=== PATIENT | male | born 1975 | race Caucasian/White ===

== ENCOUNTER 2017-01-20 15:13 | Emergency (ER) | payer OTHER ==
[2017-01-20 15:17] VITALS: BP 141/85; PULSE 69; RESP 20; TEMP 97.5
[2017-01-20] MEDS ORDERED: DIPH,PERTUS(ACELL)TETVAC-LF 0.5 ML VIAL IM ONE (15:35)
--- NOTE | 2017-01-20 15:56 | ED ---
Wound/Laceration HPI - General Chief Complaint: Wound/Laceration Stated Complaint: finger lac Time Seen by Provider: 01/20/17 15:25 Source: patient, RN notes reviewed Mode of arrival: ambulatory Limitations: no limitations - History of Present Illness Initial Comments: This a 41-year-old male presents emergency Department chief complaint laceration to his left hand 4th digit. Patient states that he was fixing a waterline in the dirt and states that the hose clamp caught his finger. He is unsure when his last tetanus was. Patient has full range of motion of the digit. Patient is normal drug ALLERGIES. Patient states is no other injury. He did state laceration extends from the proximal portion of this finger to the distal - Related Data Previous Rx's Medication Instructions Recorded Acetaminophen-Codeine 300-30mg 1 tab PO Q4H PRN #20 tablet 01/20/17 [Tylenol #3] Cephalexin [Keflex] 500 mg PO Q6HR #28 cap 01/20/17 Allergies Allergy/AdvReac Type Severity Reaction Status Date / Time No Known Allergies Allergy Verified 01/20/17 15:17 Review of Systems ROS Statement: Those systems with pertinent positive or pertinent negative responses have been documented in the HPI. ROS Other: All systems not noted in ROS Statement are negative. Past Medical History Past Medical History: No Reported History History of Any Multi-Drug Resistant Organisms: None Reported Past Surgical History: Appendectomy, Orthopedic Surgery Additional Past Surgical History / Comment(s): KNEE X4 Past Psychological History: No Psychological Hx Reported Smoking Status: Current every day smoker Past Alcohol Use History: Rare Past Drug Use History: None Reported General Exam Limitations: no limitations General appearance: alert, in no apparent distress Respiratory exam: Present: normal lung sounds bilaterally. Absent: respiratory distress, wheezes, rales, rhonchi, stridor Cardiovascular Exam: Present: regular rate, normal rhythm, normal heart sounds. Absent: systolic murmur, diastolic murmur, rubs, gallop, clicks Extremities exam: Present: other (Left hand 4th digit there is a laceration extends from proximal to distal portion on the volar surface is approximately 4 cm. Patient's full strength and full range of motion of the digits Refill less than 2 seconds) Course Vital Signs 01/20/17 15:15 Temperature 97.5 F L Pulse Rate 69 Respiratory 20 Rate Blood Pressure 141/85 O2 Sat by Pulse 99 Oximetry Procedures - Laceration Laceration #1 Consent Obtained: verbal consent Site: hand (Left hand 4th digit) Size (cm): 4 Description: linear Depth: simple, single layer Anesthetic Used: lidocaine 1%, without epi Anesthesia Technique: local infiltration Amount (mls): 4 Pre-repair: wound explored, irrigated extensively, deep structures intact Type of Sutures: nylon Size of Sutures: 4-0 Number of Sutures: 9 Technique: simple, interrupted Patient Tolerated Procedure: well, no complications Medical Decision Making - Medical Decision Making 41-year-old male presented for left hand laceration. This was closed using sutures. Patient was given instructions for wound care and return parameters. Patient placed on antibiotics as it was a contaminated wound. Patient will have recheck in 2 days and return in 10 days for suture removal. Disposition Clinical Impression: Finger laceration Disposition: HOME SELF-CARE Condition: Stable Instructions: Finger Laceration (ED), Care For Your Stitches (ED) Additional Instructions: Return in 10 days for suture removal. Wash the wound twice to soap and water.Please return to the Emergency Department if symptoms worsen or any other concerns. Prescriptions: Acetaminophen-Codeine 300-30mg [Tylenol #3] 1 tab PO Q4H PRN #20 tablet PRN Reason: pain Cephalexin [Keflex] 500 mg PO Q6HR #28 cap Referrals: Mary Jane Dahl MD [Primary Care Provider] - 1-2 days Time of Disposition: 15:56
== END 2017-01-20 16:10 | disposition home or self-care (01) ==
LOC: EC 15:13
DX: S61.215A Laceration without foreign body of left ring finger without damage to nail, initial encounter (principal); F17.200 Nicotine dependence, unspecified, uncomplicated; Z23 Encounter for immunization; Y93.89 Activity, other specified; W23.1XXA Caught, crushed, jammed, or pinched between stationary objects, initial encounter
CPT/HCPCS: 12002; 90471; 90715; 99282

== ENCOUNTER 2017-01-27 12:24 | Emergency (ER) | payer OTHER ==
[2017-01-27 12:29] VITALS: BP 140/88; PULSE 78; RESP 18; TEMP 97.7
--- NOTE | 2017-01-27 13:15 | ED ---
Recheck HPI - General Chief Complaint: Recheck/Abnormal Lab/Rx Stated Complaint: Laceration Recheck Time Seen by Provider: 01/27/17 12:33 Source: patient Mode of arrival: ambulatory Limitations: no limitations - History of Present Illness Initial Comments: Patient is a is a 41-year-old male presenting to the emergency department with chief complaint of pain to his left fourth digit on his right hand. Patient states he cut his hand one week ago and was in the emergency department for laceration repair. Patient states he's been experiencing a lot of nerve pain and follow up with his primary care physician twice and the hand surgeon on Saturday for an exposed nerve. Patient states that the hand surgeon suggested to let the nerve dry out. Patient states that the pain is excruciating and is requesting to have one suture removed is irritating the exposed nerve. Patient rates pain 10 out of 10, exacerbated with movement and touch, minimally relieved with Stella 7.5. Patient states he took his last Stella this morning at 4 AM. Patient denies chills, fevers, nausea, vomiting, shortness of breath, chest pain. Patient reports numbness to the medial side and end of the fourth finger on his left hand. Patient states that he removed a suture this morning to the distal end of his finger no relief. MD Complaint: suture/staple removal - Related Data Previous Rx's Medication Instructions Recorded Acetaminophen-Codeine 300-30mg 1 tab PO Q4H PRN #20 tablet 01/20/17 [Tylenol #3] Cephalexin [Keflex] 500 mg PO Q6HR #28 cap 01/20/17 Allergies Allergy/AdvReac Type Severity Reaction Status Date / Time No Known Allergies Allergy Verified 01/27/17 12:29 Review of Systems ROS Statement: Those systems with pertinent positive or pertinent negative responses have been documented in the HPI. ROS Other: All systems not noted in ROS Statement are negative. Past Medical History Past Medical History: No Reported History History of Any Multi-Drug Resistant Organisms: None Reported Past Surgical History: Appendectomy, Orthopedic Surgery Additional Past Surgical History / Comment(s): KNEE X4 Past Psychological History: No Psychological Hx Reported Smoking Status: Current every day smoker Past Alcohol Use History: Rare Past Drug Use History: None Reported General Exam Limitations: no limitations General appearance: alert, anxious Respiratory exam: Present: normal lung sounds bilaterally. Absent: respiratory distress, wheezes, rhonchi Cardiovascular Exam: Present: regular rate, normal rhythm, normal heart sounds Left Hand Wrist exam: Present: full ROM, tenderness, laceration (Laceration to palmar aspect of left fourth digit, no evidence of drainage or cellulitis. 8 sutures intact.) Neuro motor exam: Present: wrist extension intact, thumb opposition intact, thumb IP flexion intact, thumb adduction intact, fingers 2-5 abduction intact Neurosensory exam: Present: radial nerve intact, ulnar nerve intact, median nerve intact, other (Numbness to medial aspect of left fourth digit and in the fingertip) Vascular: Present: normal capillary refill, radial pulse, ulnar pulse. Absent: vascular compromise Neurological exam: Present: alert, oriented X3, other (No focal deficits noted) Psychiatric exam: Present: normal affect, normal mood, anxious Skin exam: Present: warm, dry Course Vital Signs 01/27/17 12:26 Temperature 97.7 F Pulse Rate 78 Respiratory 18 Rate Blood Pressure 140/88 O2 Sat by Pulse 99 Oximetry Procedures - Nerve Block Consent Obtained: verbal consent Time Out Performed: No Local Anesthetic Used: Lidocaine 1% Amount of anesthesia used: 2 (Digital nerve block to webspaces between the fourth digit on left hand.) Side: left, right Nerve Blocks: digital Procedure Successful: Yes Complications: none Patient Tolerated Procedure: well, no complications Additional Comments: One suture removed successfully. Medical Decision Making - Medical Decision Making Patient is a 41-year-old male presenting with pain to left fourth digit and complaint of nerve exposure through this incision. Patient requesting numbing prior to suture removal. Digital block performed successfully. One suture removed. Patient tolerated well. Patient suggested to continue Tylenol and Motrin for pain and follow-up with primary care physician. Patient unfortunately left AMA. Disposition Clinical Impression: Encounter for removal of sutures Disposition: Left Against Medical Advice Condition: Undetermined Referrals: Mary Jane Dahl MD [Primary Care Provider] - 1-2 days Time of Disposition: 13:15
== END 2017-01-27 13:00 | disposition left against medical advice (07) ==
LOC: EC 12:24
DX: Z48.02 Encounter for removal of sutures (principal); F17.200 Nicotine dependence, unspecified, uncomplicated
CPT/HCPCS: 64450; 99282

== ENCOUNTER 2017-08-01 22:58 | Emergency (ER) | payer OTHER ==
[2017-08-01] MEDS ORDERED: HYDROmorphone 2 MG/ML 1 ML SYRINGE IVP STA ×2 (23:16→23:53)
[2017-08-01] MEDS ORDERED: SODIUM CHLORIDE 0.9% 500 ML IV STA (23:16)
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
[2017-08-01] MEDS ORDERED: SODIUM CHLORIDE 0.9% 100 ML IV STA (23:24)
[2017-08-01 23:45] VITALS: RESP 16
[2017-08-02 00:02] VITALS: BP 129/70; PULSE 87; TEMP 98
== END 2017-08-02 00:05 | disposition home or self-care (01) ==
LOC: EC 22:58
DX: T23.212A Burn of second degree of left thumb (nail), initial encounter (principal); T21.25XA Burn of second degree of buttock, initial encounter; T24.202A Burn of second degree of unspecified site of left lower limb, except ankle and foot, initial encounter; T31.0 Burns involving less than 10% of body surface; F17.200 Nicotine dependence, unspecified, uncomplicated; X17.XXXA Contact with hot engines, machinery and tools, initial encounter; Y92.89 Other specified places as the place of occurrence of the external cause
CPT/HCPCS: 99283; 96374; 96376; 96361; J1170

== ENCOUNTER 2020-10-08 06:42 | Emergency (ER) | payer OTHER ==
[2020-10-08 06:49] VITALS: TEMP 99
[2020-10-08] MEDS ORDERED: SODIUM CHLORIDE 0.9% 1,000 ML IV STA (07:04)
[2020-10-08] MEDS ORDERED: ONDANSETRON 4 MG/2 ML VIAL IVP STA (07:04)
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
[2020-10-08 07:56] LABS: Basophils % (A) 0 %; Eosinophils # (A) 0.1 k/uL (0-0.7); Eosinophils % (A) 1 %; HCT 46.3 % (39.0-53.0); HGB 16.1 gm/dL (13.0-17.5); Lymphocytes # (A) 1.1 k/uL (1.0-4.8); Lymphocytes % (A) 11 %; MCH 32.7 pg (25.0-35.0); MCHC 34.9 g/dL (31.0-37.0); MCV 93.9 fL (80.0-100.0); Mean Platelet Volume 7.9; Monocytes # (A) 0.7 k/uL (0-1.0); Monocytes % (A) 7 %; Neutrophils # (A) 8.1 k/uL (1.3-7.7); Neutrophils % (A) 81 %; Platelet Count 294 k/uL (150-450); RBC 4.93 m/uL (4.30-5.90); RDW 11.9 % (11.5-15.5)
[2020-10-08 07:59] LABS: ALT 13 U/L (4-49); AST 17 U/L (17-59); African American GFR (CKD) >90 (>60 ml/min/1.73 sqM); Albumin 4.8 g/dL (3.5-5.0); Alkaline Phosphatase 96 U/L (38-126); Anion Gap 12 mmol/L; Blood Urea Nitrogen 14 mg/dL (9-20); C Reactive Protein <0.5 mg/dL (<1.0); Calcium 10.3 mg/dL (8.4-10.2); Carbon Dioxide 25 mmol/L (22-30); Chloride 102 mmol/L (98-107); Glucose 157 mg/dL (74-99); Non-African American GFR(CKD) >90 (>60 ml/min/1.73 sqM); Potassium 3.6 mmol/L (3.5-5.1); Sodium 139 mmol/L (137-145); Total Bilirubin 0.4 mg/dL (0.2-1.3); Total Protein 7.9 g/dL (6.3-8.2)
[2020-10-08 08:09] LABS: Appearance,Urine Clear (Clear); Bilirubin,Urine Negative (Negative); Blood,Urine Negative (Negative); Color,Urine Yellow; Glucose,Urine (UA) Negative (Negative); Ketones,Urine Negative (Negative); Leukocyte Esterase,Urine Negative (Negative); Nitrite,Urine Negative (Negative); Protein,Urine Trace (Negative); Specific Gravity,Urine 1.028 (1.001-1.035)
--- NOTE | 2020-10-08 08:35 | XR ---
EXAMINATION TYPE: XR chest 2V DATE OF EXAM: 10/08/2020 COMPARISON: NONE HISTORY: Cough TECHNIQUE: Frontal and lateral views of the chest are obtained. FINDINGS: There is no focal air space opacity, pleural effusion, or pneumothorax seen. The cardiac silhouette size is within normal limits. The osseous structures are intact. IMPRESSION: No acute cardiopulmonary process.
[2020-10-08] MEDS ORDERED: cefTRIAXone IN SWFI 1,000 MG/10 ML SYRINGE IVP STA (09:05)
[2020-10-08 09:21] VITALS: BP 112/68; PULSE 66; RESP 20
== END 2020-10-08 09:23 | disposition home or self-care (01) ==
LOC: EC 06:42
DX: R11.2 Nausea with vomiting, unspecified (principal); R68.83 Chills (without fever); F17.200 Nicotine dependence, unspecified, uncomplicated; F12.90 Cannabis use, unspecified, uncomplicated; Z79.899 Other long term (current) drug therapy; Z20.822 Contact with and (suspected) exposure to COVID-19
CPT/HCPCS: 36415; 80053; 83605; 85025; 86140; 81003; 87040; 87635; 71046; 99284; 96374; 96375; 96361 ×2; J2405; J0696